=== PATIENT | female | born 1995 | race Caucasian/White ===

== ENCOUNTER 2019-07-09 09:25 | Outpatient (CLI) | payer OTHER, SELFPAY ==
[2019-07-09 09:45] VITALS: BP 129/82; PULSE 99
[2019-07-09 09:56] LABS: Basophils Percent Auto 0.2 % (0.2-1.2); Eosinophils Absolute Auto 0.1 K/mm3 (0-0.3); Eosinophils Percent Auto 0.7 % (0-4.4); Hematocrit 41.2 % (37.0-47.0); Hemoglobin 14.4 g/dL (12.0-15.0); Immature Granulocyte Absolute 0.03 K/mm3 (0.00-0.031); Immature Granulocyte Percent A 0.3 % (0-0.5); Lymphocytes Absolute Auto 1.39 K/mm3 (0.9-3.2); Lymphocytes Percent Auto 15.4 % (18.3-44.2); Mean Corpuscular Hemoglobin 31.9 pg (26-34); Mean Corpuscular Volume 91.2 fl (80-100); Mean Platelet Volume 10.2 fl (7.4-10.4); Monocytes Absolute Auto 0.6 K/mm3 (0.1-0.6); Monocytes Percent Auto 6.8 % (2.6-8.5); Neutrophils Absolute Auto 6.9 K/mm3 (1.3-6.7); Neutrophils Percent Auto 76.6 % (45.5-73.1); Platelet Count Result 207 k/mm3 (150-375); Red Blood Count 4.52 M/mm3 (4.2-5.4); Red Cell Distribution Width 12.8 % (11.5-14.5)
[2019-07-09 09:57] LABS: Add Urine Microscopic? NO; Appearance Urine Clear (Clear); Bilirubin Urine Negative (Negative); Blood Urine Negative (Negative); Color Urine Straw (Yellow); Glucose Urine UA Negative (Negative); Ketones Urine Negative (Negative); Leukocyte Esterase Ur Negative LEU/UL (NEGATIVE); Nitrate Urine Negative (Negative); Protein Urine Negative (Negative); Specific Grav Ur 1.005 (1.001-1.035); Urobilinogen Urine Negative mg/dL (<2.0)
[2019-07-09 10:00] VITALS: BP 120/81; PULSE 101
[2019-07-09 10:06] LABS: Creatinine Urine 32.2 mg/dL; Total Protein Urine Random 13 mg/dL
[2019-07-09 10:15] VITALS: BP 114/73; PULSE 85
[2019-07-09 10:28] LABS: Alanine Aminotransferase 13 U/L (4-35); Albumin Level 3.9 g/dL (3.5-5.1); Alkaline Phosphatase 189 U/L (38-126); Aspartate Amino Transferase 25 U/L (14-36); Bilirubin,Total 0.7 mg/dL (0.2-1.3); Blood Urea Nitrogen 6 mg/dL (7-17); Calcium 9.2 mg/dL (8.4-10.2); Carbon Dioxide 22 mmol/L (22-30); Chloride 107 mmol/L (98-107); Estimated Glomerular Filt Rate > 60; Glucose 77 mg/dL (65-105); Potassium 3.9 mmol/L (3.4-5.0); Sodium 135 mmol/L (137-145); Uric Acid 5.3 mg/dL (2.5-7.5)
[2019-07-09 10:30] VITALS: BP 109/76; PULSE 98
[2019-07-09 10:36] VITALS: BP 120/81; PULSE 103
--- NOTE | 2019-07-09 10:40 | PC.NURSE ---
1035- Spoke with Michele Berry regarding labs, NST and BP's. Orders to discharge to home and return for induction at 200 on 07/10/2019.
== END 2019-07-09 11:00 | disposition home or self-care (01) ==
LOC: ANHOBOP 09:32 → ANHOBPP 09:32
PROVIDERS: Family Provider Advanced Practice Midwife; PCP Internal Medicine; Visit Provider Advanced Practice Midwife
DX: O13.9 Gestational [pregnancy-induced] hypertension without significant proteinuria, unspecified trimester (principal)
CPT/HCPCS: 36415; 59025; 80053; 81003; 82570; 84156; 84550; 85025; 87086; 99199

== ENCOUNTER 2019-07-10 19:55 | Inpatient (IN) | payer OTHER, SELFPAY ==
[2019-07-10] VITALS (10 sets, daily range): BP systolic 101–130; BP diastolic 68–87; PULSE 80–146; TEMP 36.8; BMI 32.0
--- NOTE | 2019-07-10 20:05 | LDADM ---
This patient, Shaista Dowling, was admitted to Labor/Delivery/Recovery 105 on 07/10/19 at 19:55. Plans for labor, pain management and were discussed with patient. Patient/family oriented to hospital policies and general routines including ID bracelet, bed and alarms, visiting hours, pain management, procedures, bathroom and other care routines, personal items, smoking policy, room service/diet and guest tray routines, infant security routines, and visiting hours. Patient/Family are encouraged to report perceived risks to care and to ask questions if they do not understand what they are told or what they should do. See OBIX for further documentation.
[2019-07-10] MEDS: DINOPROSTONE 10 MG VAG INSERT VAGINAL (20:39)
[2019-07-10 21:09] LABS: Basophils Percent Auto 0.1 % (0.2-1.2); Eosinophils Absolute Auto 0.1 K/mm3 (0-0.3); Eosinophils Percent Auto 0.6 % (0-4.4); Hemoglobin 13.7 g/dL (12.0-15.0); Immature Granulocyte Absolute 0.03 K/mm3 (0.00-0.031); Immature Granulocyte Percent A 0.3 % (0-0.5); Lymphocytes Absolute Auto 1.92 K/mm3 (0.9-3.2); Mean Corpuscular HGB Conc 35.1 g/dl (32-36); Mean Corpuscular Hemoglobin 31.9 pg (26-34); Mean Corpuscular Volume 90.9 fl (80-100); Mean Platelet Volume 10.4 fl (7.4-10.4); Monocytes Absolute Auto 0.6 K/mm3 (0.1-0.6); Neutrophils Absolute Auto 7.5 K/mm3 (1.3-6.7); Platelet Count Result 227 k/mm3 (150-375); Red Blood Count 4.29 M/mm3 (4.2-5.4); White Blood Count 10.1 K/mm3 (4.5-10.0)
[2019-07-11] VITALS (129 sets, daily range): BP systolic 77–133; BP diastolic 52–98; PULSE 76–227; RESP 16; TEMP 36.6–37.1; O2SAT 98–100
[2019-07-11] MEDS: ZOLPIDEM TARTRATE 5 MG TABLET PO (00:45)
[2019-07-11] MEDS: LACTATED RINGERS 1,000 ML 125 ML IV CONT ×2 (02:31→06:30)
--- NOTE | 2019-07-11 05:16 | WPDANESEPP ---
Anes - Eval Pre Procedure Procedure: Labor epidural Date/Time: 07/11/19 05:16 Surgeon: jameel Preop Diagnosis: Abd pain with contractions Pre Op Diagnosis: Induction Patient Data Age: 24 Gender: F Height: 5 ft 6 in Weight: 90 kg Last Vital Signs Temp 98.4 F 07/11/19 00:00 Pulse 100 07/11/19 05:16 BP 109/78 07/11/19 05:16 Pulse Ox 100 07/11/19 05:14 Allergies Allergy/AdvReac Type Severity Reaction Status Date / Time No Known Allergies Allergy Verified 06/12/19 13:36 Home Medications Medication Instructions Recorded Confirmed Type PNV cmb#95-ferrous fumarate-FA 1 tablet PO DAILY 06/12/19 06/12/19 History [] valacyclovir [Valtrex] 500 mg PO Q12H 06/12/19 06/12/19 History Laboratory Tests 07/10/19 07/10/19 07/10/19 20:30 20:30 20:30 WBC 10.1 K/mm3 H K/mm3 (4.5-10.0) RBC 4.29 M/mm3 M/mm3 (4.2-5.4) Hgb 13.7 g/dL g/dL (12.0-15.0) Hct 39.0 % % (37.0-47.0) MCV 90.9 fl fl (80-100) MCH 31.9 pg pg (26-34) MCHC 35.1 g/dl g/dl (32-36) RDW 13.0 % % (11.5-14.5) Plt Count 227 k/mm3 k/mm3 (150-375) MPV 10.4 fl fl (7.4-10.4) Immature Gran % (Auto) 0.3 % % (0-0.5) Neut % (Auto) 74.0 % H % (45.5-73.1) Lymph % (Auto) 19.0 % % (18.3-44.2) [place] % (Auto) 6.0 % % (2.6-8.5) Eos % (Auto) 0.6 % % (0-4.4) Baso % (Auto) 0.1 % L % (0.2-1.2) Lymph # (Auto) 1.92 K/mm3 K/mm3 (0.9-3.2) [place] # (Auto) 0.6 K/mm3 K/mm3 (0.1-0.6) Eos # (Auto) 0.1 K/mm3 K/mm3 (0-0.3) Baso # (Auto) 0.0 K/mm3 K/mm3 (0.0-0.1) Abs Immat Gran (auto) 0.03 K/mm3 K/mm3 (0.00-0.031) Absolute Neuts (auto) 7.5 K/mm3 H K/mm3 (1.3-6.7) Absolute Nucleated RBC 0.0 K/mm3 K/mm3 (0.0-0.012) Nucleated RBC % 0.0 % % (0.0-0.2) RPR Pending Blood Type AB Positive Antibody Screen Negative Patient hx anesthesia problems: none Family hx anesthesia problems: none PMFSH Past Medical History Medical History Overweight (BMI 25.0-29.9) and not yet delivered Surgical History Surgical History (Updated 07/11/19 @ 05:18 by Eliazar Lee CRNA) [place] teeth extracted Family History Family History Other No pertinent family history Social History Social History Smoking status: Never smoker Substance use: never Gender identity (if verbalized by the patient): Female Spiritual care concerns: No Exam Day of Procedure 07/11/19 05:16 Patient weight: overweight Airway: Mallampati scale class II Neurological: alert and oriented
[2019-07-11 07:19] LABS: Rapid Plasma Reagin Non-Reactive (NonReactive)
--- NOTE | 2019-07-11 07:26 | WPDOBADMIT ---
Obstetrics - Admit Note Admission Note: record reviewed. No pertinent additions to the history and/or any subsequent changes in the physical findings that are not consistent with the expected course of the were found. MiL term , no complications SVE /-1 AROM clear fluid Additions to the history and/or subsequent changes in the physical findings follow. None.
[2019-07-11] MEDS: OXYTOCIN 30 UNITS/NS 500 ML 30 UNITS/500 ML BAG 999 UNITS IV CONT (11:39)
--- NOTE | 2019-07-11 12:00 | PM.OBPRVD ---
OB - Delivery Note Procedure Delivery date: 07/11/19 Procedure: vaginal delivery Intrapartal events: None Induction method: AROM and per misoprostol protocol Delivery monitor: external FHT and external uterine Route of delivery: Laceration description: Perineal - 2nd Degree Delivery repair: vicryl Specimen: No Anesthesia type: Epidural Disposition: no change () Narrative: baby came out vigorous, still some mild oozing from tissue after repair, vaginal packingplaced Baby Date of : 07/11/19 Time of : 11:36 Weeks of gestation at delivery: 40 Infant gender: Female Weight (pounds): 7 Weight (ounces): 6 presentation: vertex position: Right Occiput Anterior Placenta delivery description: Spontaneous cord vessel description: 3 Vessels and Clamped/Cut score one minute: 8 score five minutes: 9
[2019-07-11] MEDS: OXYTOCIN 30 UNITS/NS 500 ML 30 UNITS/500 ML BAG 125 UNITS IV CONT (12:12)
--- NOTE | 2019-07-11 15:55 | PC.NURSE ---
This patient, Shaista Dowling, was received from Labor & Deliver on 07/11/19 at 1554. Personal belongings list checked and signed. Patient/family oriented to unit policies and routines
[2019-07-11] MEDS: IBUPROFEN 600 MG TABLET PO ×2 (16:28→23:05)
[2019-07-11] MEDS: VALACYCLOVIR HCL 500 MG TABLET PO (17:46)
[2019-07-11] MEDS: ACETAMINOPHEN 325 MG TABLET 650 MG PO (18:04)
[2019-07-12 05:37] LABS: Hematocrit 29.2 % (37.0-47.0); Hemoglobin 10.2 g/dL (12.0-15.0)
[2019-07-12] MEDS: IBUPROFEN 600 MG TABLET PO ×3 (06:46→21:55)
[2019-07-12 06:50] VITALS: BP 114/74; PULSE 95; RESP 18; TEMP 36
[2019-07-12] MEDS: VALACYCLOVIR HCL 500 MG TABLET PO ×2 (08:56→21:55)
--- NOTE | 2019-07-12 10:01 | PM.OBPNVD ---
OB - PN: Subj Subjective Date/time seen: 07/12/19 10:01 OB - PN: Obj Data Labs CBC & Chem 7: 07/12/19 04:36 Labs: Laboratory Results - last 24 hr 07/12/19 04:36 Hgb 10.2 L D Hct 29.2 L OB - PN A/P Plan day: 1 Plan: routine care Comments: Pt considering discharge today. Time Spent With Patient Time: Total time spent is greater than 50% in coordination of care (as documented) at patient's floor/unit and/or counseling patient: Review of Systems Review of Systems: All systems reviewed & are unremarkable except as noted in HPI and below Exam Narrative: Exam Narrative: Fundus firm and vaginal flow controlled. Const: General: comfortable Cardio: Rate: regular rate Psych: Appearance: grossly normal Affect: normal affect Attitude: cooperative Judgement: Good judgement present (Psych)
--- NOTE | 2019-07-12 17:36 | WPDANLDPN2 ---
Anes-Prog Note L&D Date/Time: 07/12/19 17:36 Comfortable throughout: labor and delivery Neuraxial method: epidural Epidural/Spinal procedure site: clean & non-tender Neuro status: Neuro function grossly intact. Cardiovascular status: normal Respiratory status: normal Airway patency: baseline Mental status: baseline Post-Op hydration status: normal Vital Signs: Last Vital Signs Temp 36.0 C L 07/12/19 06:50 Pulse 95 07/12/19 06:50 Resp 18 07/12/19 06:50 BP 114/74 07/12/19 06:50 Pulse Ox 100 07/11/19 20:15 Post-procedural complaints: none Patient feedback: Patient satisfied with anesthetic care.
[2019-07-12 20:00] VITALS: BP 114/77; PULSE 98; RESP 13; TEMP 37.2; O2SAT 99
[2019-07-13] MEDS: IBUPROFEN 600 MG TABLET PO (08:42)
[2019-07-13] MEDS: VALACYCLOVIR HCL 500 MG TABLET PO (08:54)
--- NOTE | 2019-07-13 09:08 | PM.OBDSVD ---
DS: Diagnosis Discharge Diagnosis (1) Vaginal delivery: Code(s): O80 - Encounter for full-term uncomplicated delivery Status: Acute OB - DS: Summary OB Procedures : None OB Procedures Intrapartum: Spontaneous Vag Delivery OB Procedures: : None Peripartum Data Delivery Method: Natural Vaginal complications: none Status at Discharge Functional status at discharge: independent ambulation Overall status at discharge: patient is back to baseline Time Spent with Patient Time attestation: Total time spent providing and/or coordinating discharge services: Time spent: Less than 30 minutes Exam Narrative: Exam Narrative: Fundus firm and vaginal flow controlled. Const: General: comfortable Cardio: Rate: regular rate Psych: Appearance: grossly normal Mental Status: mental status grossly normal Affect: normal affect Attitude: cooperative Thought content: Yes Normal thought content present Judgement: Good judgement present (Psych) Discharge Plan Discharge Attending physician on discharge: Melba Berry Discharging Clinician: Hilary Hutchinson Patient Disposition: Home, Self-Care Activity: pelvic rest Diet: as tolerated Patient Instructions: Antibiotic Form Stand Alone Forms: General Discharge Information Follow-up/Referrals: Melba Berry CNM [Certified Nurse Cryptographic Machine Operator] - Discharge Medications: Continued valacyclovir [Valtrex] 500 mg Tablet 500 mg PO Q12H RF: 0 PNV cmb#95-ferrous fumarate-FA [] 28 mg iron- 800 mcg Tablet 1 tablet PO DAILY RF: 0 Date of admission: 07/10/19 19:55 Primary Care Provider: Benigno,Ladarius Admitting Provider: Zulema Cook Attending physician on admission: Zulema Cook
[2019-07-13 09:42] VITALS: BP 113/74; PULSE 98; RESP 18; TEMP 35.9
[2019-07-16 09:59] VITALS: BP 124/85; PULSE 93; RESP 20; TEMP 37.2; O2SAT 100
== END 2019-07-13 13:32 | disposition home or self-care (01) | DRG 807 ==
LOC: ANHLDR 07-11 13:11 → ANHOB2 07-11 16:37
PROVIDERS: Advanced Practice Midwife; Admitting Provider Obstetrics & Gynecology; PCP Internal Medicine; Visit Provider Obstetrics & Gynecology
DX: O76 Abnormality in fetal heart rate and rhythm complicating labor and delivery (principal); Z37.0 Single live birth; O70.1 Second degree perineal laceration during delivery; Z3A.40 40 weeks gestation of pregnancy
CPT/HCPCS: 36415; 85014; 85018; 85025; 86592; 86850; 86900; 86901; A9270; J2590; J2795; J3010; J7120

== ENCOUNTER 2021-07-18 15:01 | Inpatient (IN) | payer OTHER, SELFPAY ==
--- OUTSIDE RECORDS SUMMARY | 2021-07-18 15:16 | XMS_ITS ---
:1995 Author Organization [facility] Address [address] [place] [address] Phone Care Team Providers Name Role Phone CONCEPCION JACKSON Unavailable Unavailable Plan of Treatment Findings Encounter Date Go to the emergency room if condition WALK-IN CLINIC SICK SIT with 04/15/2019 worsens SANDER STALLINGS CAN LINE EXAMINER-BC Medication instruction WALK-IN CLINIC SICK VISIT with 2019 SANDER STALLINGS CAN LINE EXAMINER-BC Ordered follow-up visit as needed WALK-IN CLINIC SICK VISIT with 04/15/2019 with an office visit. SANDER STALLINGS CAN LINE EXAMINER-BC Ordered goals, options, limitations WALK-IN CLINIC SICK VISI T with 04/15/2019 and risks of therapy SANDER STALLINGS CAN LINE EXAMINER-BC Ordered patient will call for WALK-IN CLINIC SICK VISIT with 04/15/2019 appointment as needed SANDER STALLINGS CAN LINE EXAMINER-BC Ordered return to the clinic if WALK-IN CLINIC SICK VISIT wi th 04/15/2019 condition worsens or new symptoms SANDER STALLINGS CAN LINE EXAMINER-BC arise Ordered follow-up visit in 1-2 weeks WALK-IN CLINIC SICK SIT with 01/13/2018 with an office visit or sooner if SANDER STALLINGS CAN LINE EXAMINER-BC symptoms persist or worsen Ordered patient to call if problem WALK-IN CLINIC SICK VISIT with 01/13/2018 develops SANDER STALLINGS CAN LINE EXAMINER-BC Ordered referred to primary care WALK-IN CLINIC SICK VISIT w ith 01/13/2018 physician SANDER STALLINGS CAN LINE EXAMINER-BC Ordered return to the clinic if WALK-IN CLINIC SICK VISIT wi th 01/13/2018 condition worsens or new symptoms SANDER DAVIES
--- OUTSIDE RECORDS SUMMARY | 2021-07-18 15:16 | XMS_ITS | Clinical Summary ---
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 No restrictions id entified. Copy of physical made for chart. Assessments Includes: Assessments from this encounter - Visit for: pre-employment physical [Z0 2.1 - Encounter for pre-employment examination] - Routine adult history and physical (18 - 64 yrs) [Z00.00 - Encounter for general adult medical examination without abnormal findings] Medical Equipment - Implanted Devices Includes: Current DevicesNo Medical Equipment Recorded Medications Includes: Medications discussed during this encounter and other current Medications Current Medications (continue as prescribed) PredniSONE 20MG Oral Tablet 01/13/2018 Provider: KARLA HAROBC Diagnosis: Acute bronchitis, un specified One tablet twice a day ProAir HFA 108 (90 Base)MCG/ACT 01/13/2018 Provider: SANDER BRAR-BC Inhalation Aerosol, solution Diagnosis: Acute bronchitis, un specified use as directed 2 puffs every 4-6 hours as needed
--- OUTSIDE RECORDS SUMMARY | 2021-07-18 15:16 | XMS_ITS | Clinical Summary ---
:1995 Author Organization [facility] Address [address] [place] [address] Phone Care Team Providers Name Role Phone CONCEPCION AJCKSON Unavailable Unavailable Reason for Visit and Chief Complaint The Chief Complaint is: THE PATIENT HAS A COUGH, IT HAS BEEN GOING ON FOR 2 WEEKS Plan of Treatment - Return to the clinic if condition worsens or new symptoms arise - Referred to primary care physician - Follow-up visit in 1-2 weeks with an o ffice visit or sooner if symptoms persist or worsen - Transition in care, clinical summary p rovided - Patient to call if problem develops Assessments Includes: Assessments from this encounterNo Assessments Recorded Instructions Includes: Instructions from this encounter Instructions to patient Go to the emergency room if condition wo rsens Watch for signs/symptoms of infection Watch for signs/symptoms of infection, r eturn to the clinic if seen Education and Decision Aids were provide d during visit for: Patient education about antibiotics: nee d to finish even if feeling better Medical Equipment - Implanted Devices Includes: Current DevicesNo Medical Equipment Recorded Medications Includes: Medications discussed during this encounter and other current Medications New / Renewed during this visit SANDER DOLAN on 01/13/2018 PredniSONE 20MG Oral Tablet Provider: KARLA DOLAN 5 day supply: 10
--- OUTSIDE RECORDS SUMMARY | 2021-07-18 15:16 | XMS_ITS | Clinical Summary ---
:1995 Author Organization [facility] Address [address] [place] [address] Phone Care Team Providers Name Role Phone CONCEPCION JACKSON Unavailable Unavailable Reason for Visit and Chief Complaint The Chief Complaint is: PT STATES THAT SHE HAS A LUMP IN HER RIGHT EAR TEO. SHE STATES THAT IT IS PAINFUL TO TOUCH AND STATES THAT SHE IS UNSURE WHEN IT APPEARED BUT WAS MESSING WITH IT YESTERDAY AND IT IS SORE NOW Plan of Treatment No Plan of Treatment Recorded Assessments Includes: Assessments from this encounterNo Assessments Recorded Medical Equipment - Implanted Devices Includes: Current DevicesNo Medical Equipment Recorded Medications Includes: Medications discussed during this encounter and other current Medications Current Medications (continue as prescribed) PredniSONE 20MG Oral Tablet 01/13/2018 Provider: KARLA DOLAN Diagnosis: Acute bronchitis, un specified One tablet twice a day ProAir HFA 108 (90 Base)MCG/ACT 01/13/2018 Provider: SANDER DOLAN Inhalation Aerosol, solution Diagnosis: Acute bronchitis, un specified use as directed 2 puffs every 4-6 hours as needed Zithromax Z-Ray 250MG Oral Tablet 01/13/2018 Provider: SANDER BRAR-MACHELLE Diagnosis: Acute bronchitis, un specified as directed
--- OUTSIDE RECORDS SUMMARY | 2021-07-18 15:16 | XMS_ITS | Clinical Summary ---
:1995 Author Organization [facility] Address [address] [place] [address] Phone Care Team Providers Name Role Phone CONCEPCION JACKSON Unavailable Unavailable Reason for Visit and Chief Complaint CHART UPDATE Plan of Treatment No Plan of Treatment [...] Z-Ray 250MG Oral Tablet 01/13/2018 Provider: SANDER DOLAN Diagnosis: Acute bronchitis, un specified as directed Medications Administered Includes: Administered Medications from this encounterNo Administered Medications Recorded Results Includes: Results discussed during this encounterKelley Abdalla
--- OUTSIDE RECORDS SUMMARY | 2021-07-18 15:16 | XMS_ITS | Clinical Summary ---
:1995 Author Organization [facility] Address [address] [place] [address] Phone Care Team Providers Name Role Phone CONCEPCION JACKSON Unavailable Unavailable Reason for Visit and Chief Complaint The Chief Complaint is: SORE THROAT Plan of Treatment - Goals, options, limitations and risks of therapy - Return to the clinic if condition wors ens or new symptoms arise - Go to the emergency room if condition worsens - Medication instruction - Follow-up visit as needed with an offi ce visit. - Patient will call for appointment as n eeded Assessments Includes: Assessments from this encounter - Acute upper respiratory infection Instructions Includes: Instructions from this encounter Instructions to patient Instructions for patient Go to the emergency room if condition wo rsens Education and Decision Aids were provide d during visit for: Patient education about antibiotics: nee d to finish even if feeling better Medical Equipment - Implanted Devices Includes: Current DevicesNo Medical Equipment Recorded Medications Includes: Medications discussed during this encounter and other current Medications Current Medications (continue as prescribed) PredniSONE 20MG Oral Tablet 01/13/2018 Provider: KARLA STALLINGS GAS OPERATIONS ANALYST- Diagnosis: Acute bronchitis, un specified
--- OUTSIDE RECORDS SUMMARY | 2021-07-18 15:16 | XMS_ITS ---
Care Plan - [facility] Created on:July 18, 2021 Patient:JOSELIN CAMPA Sex:Female :1995 Author Organization [facility] Address [address] [place] [address] Phone Care Team Providers Name Role Phone CONCEPCION JACKSON Unavailable Unavailable
--- OUTSIDE RECORDS SUMMARY | 2021-07-18 15:17 | XMS_ITS | Encounter Summary ---
:1995 Author Care Team Providers Name Role Phone Ladarius Pelaez MD Primary Care Provider [phone] Reason for Visit OB visit OB [id number] EDC 08/29/2021 LMP 11/22/2020 Assessment and Plan Assessment Note Patient is _31__weeks . Dis cussed plan. 1. Routine care Discussion Note: None recorded.Patient educational handouts: No information available. Plan of Care Reminders Provider Appointments U/s Ob Ultrasou nd, TECH Growth 07/26/2021 3:30PM ? Ob Routine Radha Th erese 07/26/2021 MD Yung 4:15PM ? Ob Routine Melba Berry, 08/05/2021 CNM 11:45AM ? Ob Routine Melba Berry, 08/12/2021 CNM 9:30AM ? Ob Routine Melba Berry, 08/17/2021 CNM 8:30AM Lab None ? ? recorded. Referral None ? ? recorded. Procedures None ? ? recorded. Surgeries None ? ? recorded. Imaging None ? ? recorded. Medications Name Start Date ? ?
--- OUTSIDE RECORDS SUMMARY | 2021-07-18 15:17 | XMS_ITS ---
:1995 Author Care Team Providers Name Role Phone Farhan Lianne Primary Care Provider Unavailable Allergies Code Code System Name Reaction Severity Status Onset NKDA ? Medications Name Status Start Date Stop Date ? ? acyclovir 400 mg tablet Active ? Not avai lable TAKE 1 TABLET BY MOUTH TWICE DAILY FOR SEVEN DAYS acyclovir 5 % topical ointment Active ? N ot available Apply twice a day to lips for prevention; 5 times daily for act ual sore amoxicillin 875 mg-potassium clavulanate Unknown ? Not available 125 mg tablet Aplisol 5 tub. unit/0.1 mL intradermal Active ? Not available injection solution hydrocodone 5 mg-acetaminophen 325 mg Unknown ? Not available tablet ofloxacin 0.3 % eye drops Active ? Not av ailable penicillin V potassium 250 mg tablet Unknown ? Not available valacyclovir 1 gram tablet Unknown ? Not a vailable Problems Name Status Onset Date Source ? Herpes Simplex Active ? Encounter Procedures None recorded. Results Lab Results Date Name Specimen Result Interpretation Description Value Range Status Address ? 08/20/2013 Drug ? Chain of Custody no ? Fi nal [facility] Screen, Diagnosti cs - Urine [place]: [address] ? ?
--- OUTSIDE RECORDS SUMMARY | 2021-07-18 15:17 | XMS_ITS | Encounter Summary ---
:1995 Author Care Team Providers Name Role Phone Ladarius Pelaez MD Primary Care Provider [phone] Reason for Visit None recorded. Assessment and Plan 1. screening ? US, obstetric, follow-up Discussion Note: None recorded.Patient educational handouts: No [...] recorded. Surgeries None ? ? recorded. Imaging [facility], Follow-up 05/04/2021 Medications Name Start Date ? ? acyclovir 400 mg tablet ?
--- OUTSIDE RECORDS SUMMARY | 2021-07-18 15:17 | XMS_ITS | Encounter Summary ---
:1995 Author Care Team Providers Name Role Phone Ladarius Pelaez MD Primary Care Provider [phone] Reason for Visit OB visit OB [id number] EDC 08/29/2021 LMP 11/22/2020 Assessment and Plan 1. Routine care Discussion Note: None recorded.Patient [...] recorded. Medications Name Start Date ? ? acyclovir 400 mg tablet ? aspirin ?
--- OUTSIDE RECORDS SUMMARY | 2021-07-18 15:17 | XMS_ITS ---
:1995 Author Care Team Providers Name Role Phone ANNA ZARCO MD Primary Care Provider [phone] Allergies Code Code System Name Reaction Severity Status Onset NKDA ? Medications Name Status Start Date Stop Date ? ? acyclovir 400 mg tablet Active ? Not avai lable aspirin Active ? Not available multivitamin tablet Completed ? 01/20/2021 Active ? Not available Prilosec Completed ? 08/08/2019 valacyclovir 1 gram tablet Completed ? 06/22 valacyclovir 500 mg tablet Completed ? 01/20 TAKE 1 TABLET BY MOUTH EVERY DAY valacyclovir hydrochloride 500 mg tabs Completed ? 08/08/2019 Problems Name Status Onset Date Source ? SNOMED CT Concept Unknown 05/09/[address] Concept Unknown 05/09/2018 History Blighted Ovum Unknown 11/22/2018 History Finding of Contents of Cervix Unknown 11/22/2018 Hi story Threatened Miscarriage Unknown 12/11/2018 History Gestation Less than 9 Weeks Unknown 12/11/2018 Hist ory Detection Examination Unknown 12/11/2018 History Screening Unknown 12/23/2018 History , Childbirth and Puerperium Unknown 01/23/2019 History Finding Screening for Malformation Unknown 02/19/2019 History , Childbirth and Puerperium Unknown 05/02/2019 History Finding Normal in Multigravida Unknown 06/09/2019 History Unknown 06/23/2019 ?
--- OUTSIDE RECORDS SUMMARY | 2021-07-18 15:17 | XMS_ITS | Encounter Summary ---
:1995 Author Care Team Providers Name Role Phone Ladarius Pelaez MD Primary Care Provider [phone] Reason for Visit OB visit ob [id number] edc 08/29/2021 lmp 11/22/2020 Assessment and Plan Assessment Note Patient is _33__weeks . Dis cussed plan. 1. Routine care [...]
--- OUTSIDE RECORDS SUMMARY | 2021-07-18 15:17 | XMS_ITS | Encounter Summary ---
:1995 Author Care Team Providers Name Role Phone Ladarius Pelaez MD Primary Care Provider [phone] Reason for Visit OB visit OB [id number] EDC 08/29/2021 LMP 11/22/2020 Assessment and Plan Assessment Note Patient is _23__weeks . Dis cussed plan. 1. Routine care [...]
[2021-07-18 16:00] VITALS: TEMP 36.3
[2021-07-18] MEDS: AMPICILLIN 2 GM/NS 100 ML 2 GM/100 ML BAG IVPB (16:13)
[2021-07-18] MEDS: BETAMETHASONE SOD PHOS/ACETATE 30 MG/5 ML VIAL 12 MG IM (16:15)
[2021-07-18 16:20] VITALS: BMI 33.0
[2021-07-18 16:22] VITALS: BP 122/73; PULSE 108
--- NOTE | 2021-07-18 17:27 | PM.IMHP ---
H&P: HPI History of Present Illness Date/Time: 07/18/21 17:27 Chief Complaint: pprom Narrative: Shaista is a 26yo at 34.0 who presented with ROM this afternoon. Mild irregular contractions but not laboring. Has received one dose of celestone. has only been complicated by COVID infection in March and short interval . She has had growth US and taking ASA. Review of Systems Review of Systems: All systems reviewed & are unremarkable except as noted in HPI and below PMFSH Past Medical History Medical History (Updated 07/18/21 @ 17:36 by Radha Barragan MD) Overweight (BMI 25.0-29.9) and not yet delivered Surgical History Surgical History (Updated 07/11/19 @ 05:18 by Eliazar Lee CRNA) [place] teeth extracted Family History Family History Other No pertinent family history Social History Social History Smoking status: Never smoker Substance use: never Gender identity (if verbalized by the patient): Female Spiritual care concerns: No Meds Home Medications and Allergies Home Medications Medication Instructions Recorded Confirmed Type PNV cmb#95-ferrous fumarate-FA 1 tablet PO DAILY 06/12/19 07/18/21 History [] valacyclovir [Valtrex] 500 mg PO Q12H 06/12/19 06/12/19 History aspirin 81 mg PO DAILY 07/18/21 07/18/21 History Allergies Allergy/AdvReac Type Severity Reaction Status Date / Time No Known Allergies Allergy Verified 06/12/19 13:36 Vital Signs Vital Signs - 24 hr 07/18/21 16:22 Pulse Rate 108 H Blood Pressure 122/73 Exam Const: General: no acute distress Resp: Effort & Inspection: normal respiratory effort Auscultation: clear to auscultation bilaterally Cardio: Rate: regular rate Rhythm: regular rhythm GI: GI Palp: Yes Soft to palpation Extrem: General: normal to inspection Assessment and Plan Assessment and plan (1) premature rupture of membranes (PPROM) with onset of labor after 24 hours of rupture in third trimester, antepartum: Code(s): O42.113 - premature rupture of membranes, onset of labor more than 24 hours following rupture, third trimester Status: Acute Assessment and Plan: ampicillin running s/p first dose celvaleryone discussed RBA of delivery here vs transfer to [place]. They strongly desire transfer to ensure they are not from the baby. [facility] Access center called, transfer accepted.
[2021-07-18 17:45] VITALS: TEMP 36.1
[2021-07-18 18:27] VITALS: BP 126/79; PULSE 103
--- NOTE | 2021-08-09 07:23 | PM.TDS ---
Transfer Discharge Sum: Prov Provider Date of admission: 07/18/21 15:01 Primary care physician: Ladarius Pelaez, Admitting clinician: Radha Barragan MD Consults: 07/18/21 15:40 Consult to Anesthesiology Routine Reason for consultation: Epidural Has provider been notified: Yes DS: Admitting Diagnosis Discharge Date 07/18/21 Admitting Diagnosis PPROM DS: Discharge Diagnosis Discharge Diagnosis (1) premature rupture of membranes (PPROM) with onset of labor after 24 hours of rupture in third trimester, antepartum: Code(s): O42.113 - premature rupture of membranes, onset of labor more than 24 hours following rupture, third trimester Status: Acute Plan Narrative: Shaista is a 26yo at 34.0 who presented with ROM this afternoon.? Mild irregular contractions but not laboring.? Has received one dose of celestone.? has only been complicated by COVID infection in March and short interval .? She has had growth US and taking ASA.? Received celestone. Transfer per her preference due to 34 week gestation and desire to not be from . Transfer Discharge Sum: Med Medications Active and Home Medications: Home Medications vit no.95-ferrous fumarate 28 mg-folic acid 800 mcg tablet () 1 tablet PO DAILY 06/12/19 [History Confirmed 07/18/21] valacyclovir 500 mg tablet (Valtrex) 500 mg PO Q12H 06/12/19 [History Confirmed 06/12/19] aspirin 81 mg tablet 81 mg PO DAILY 07/18/21 [History Confirmed 07/18/21] Transfer Discharge Sum: Hosp Hospital Course Hospital course: Shaista Dowling is a 26 year old female admitted with PPROM. She requested transfer so as to not be from her . Time Spent with Patient Time attestation: Total time spent providing and/or coordinating transfer services: 45 min Exam Const: General: no acute distress Resp: Effort & Inspection: normal respiratory effort Auscultation: clear to auscultation bilaterally Cardio: Rate: regular rate Rhythm: regular rhythm GI: GI Palp: Yes Soft to palpation Extrem: General: normal to inspection
== END 2021-07-18 18:30 | disposition short-term general hospital (02) | DRG 833 ==
PROVIDERS: Admitting Provider Obstetrics & Gynecology; PCP Internal Medicine; Visit Provider Obstetrics & Gynecology
DX: O42.913 Preterm premature rupture of membranes, unspecified as to length of time between rupture and onset of labor, third trimester (principal); Z3A.34 34 weeks gestation of pregnancy
CPT/HCPCS: J0290; J0702

== ENCOUNTER 2022-10-26 01:04 | Day surgery (SDC) | payer OTHER, SELFPAY ==
[2022-10-23 10:45] VITALS: BMI 30.7
--- NOTE | 2022-10-23 10:54 | PC.NURSE ---
Report to the Outpatient Waiting Room, entrance under the green pavilion located off [facility], at time _1200 on date ___10/24/22____. Planned Procedure Time: __2PM . Time changes happen often and if your time is changed the preop area will call you the afternoon before. - You and your visitor will be asked to self-screen and do not enter if you have any COVID symptoms. - A mask is optional within the hospital at this time. Patients may have clear liquids (water, carbonated beverages, clear teas, apple juice) until 3 hours prior to surgery (1100 AM) with a maximum of 20 ounces. - No food from midnight until time of surgery - Infants may have breast milk until 4 hours before surgery, infant formula 6 hours prior to surgery. - Children will be allowed to drink immediately following surgery. If applicable, please bring a bottle or sippy cup to assist with drinking. Juice, water, soda, and popsicles are readily available. For infants on formula, please bring formula the day of surgery. Pacifiers are allowed. Take the following medications with a SIP of water the morning of surgery: N/A DO NOT STOP ANY OF YOUR OTHER PRESCRIPTION MEDICATIONS PRIOR TO SURGERY ?EXCEPT THE FOLLOWING Medications to discontinue per physician N/A Date to take last dose Please no make-up, nail greenlandic, hairspray, perfume, deodorant, or body powder the day of surgery. No jewelry (including any body piercings) or valuables the day of surgery, leave them at home. Please take a shower or bath the night before, or the morning of, surgery with an antibacterial soap. Wear comfortable, loose fitting clothing. Children are encouraged to wear pajamas. - Jewelry must be removed prior to entering the operating room. Rings and piercings that are not removed may be cut off. - The hospital will not accept responsibility for valuables. - Please leave all valuables, including medications, at home the day of surgery. If you are going home after surgery, a licensed motorcycle delivery driver must drive you home. - NO public transportation without another adult if you receive anesthesia. - We recommend that an adult stay with you for 24 hours following discharge. - We also recommend that you do not drive, make important decision, drink alcoholic beverages, or take any drugs that were not prescribed by your health care provider for at least 24 hours after your discharge time. For Pediatric surgeries, we recommend two adults accompany the child home. Follow any additional instructions given to you from your surgeon. If you or anyone in your household have experienced Covid symptoms in the past week, please notify your surgeon or the nurse liaison at the phone number below for possible testing. Telephone instructions given to ____PATIENT and asked if any additional questions and then verbalized understanding. Patient advised to call surgeon office or pre surgery nurse liaison [phone] if any additional questions.
--- NOTE | 2022-10-24 12:32 | SUR.PREOP ---
Report to the Outpatient Waiting Room, entrance under the green pavilion located off [facility], at time _0600 on date _10/26/22 . Planned Procedure Time: _07 . Time changes happen often and if your time is changed the preop area will call you the afternoon before. - You and your visitor will be asked to self-screen and do not enter if you have any COVID symptoms. - A mask is optional within the hospital at this time. Patients may have clear liquids (water, carbonated beverages, clear teas, apple juice) until 3 hours prior to surgery with a maximum of 20 ounces. - No food from midnight until time of surgery - Infants may have breast milk until 4 hours before surgery, infant formula 6 hours prior to surgery. - Children will be allowed to drink immediately following surgery. If applicable, please bring a bottle or sippy cup to assist with drinking. Juice, water, soda, and popsicles are readily available. For infants on formula, please bring formula the day of surgery. Pacifiers are allowed. Take the following medications with a SIP of water the morning of surgery: ___n/a DO NOT STOP ANY OF YOUR OTHER PRESCRIPTION MEDICATIONS PRIOR TO SURGERY ?EXCEPT THE FOLLOWING Medications to discontinue per physician n/a Date to take last dose___n/a Please no make-up, nail estonian, hairspray, perfume, deodorant, or body powder the day of surgery. No jewelry (including any body piercings) or valuables the day of surgery, leave them at home. Please take a shower or bath the night before, or the morning of, surgery with an antibacterial soap. Wear comfortable, loose fitting clothing. Children are encouraged to wear pajamas. - Jewelry must be removed prior to entering the operating room. Rings and piercings that are not removed may be cut off. - The hospital will not accept responsibility for valuables. - Please leave all valuables, including medications, at home the day of surgery. If you are going home after surgery, a licensed haul truck driver must drive you home. - NO public transportation without another adult if you receive anesthesia. - We recommend that an adult stay with you for 24 hours following discharge. - We also recommend that you do not drive, make important decision, drink alcoholic beverages, or take any drugs that were not prescribed by your health care provider for at least 24 hours after your discharge time. For Pediatric surgeries, we recommend two adults accompany the child home. Follow any additional instructions given to you from your surgeon. If you or anyone in your household have experienced Covid symptoms in the past week, please notify your surgeon or the nurse liaison at the phone number below for possible testing. Telephone instructions given to dwayne cosby and asked if any additional questions and then verbalized understanding. Patient advised to call surgeon office or pre surgery nurse liaison [phone] if any additional questions.
[2022-10-26 06:27] VITALS: BP 115/75; PULSE 81; RESP 16; TEMP 36.3; O2SAT 100
[2022-10-26] MEDS: ACETAMINOPHEN 500 MG TABLET 1000 MG PO (06:40)
--- NOTE | 2022-10-26 06:44 | WPDANESEPPF ---
Anes - Initial Pre Proc Eval Procedure: Operation Date: 10/26/22 07:30 Proposed Procedures p Suction Dilation and Curettage - Susanne Benson MD Date/Time: 10/26/22 06:44 Surgeon: Susanne Benson MD Pre Op Diagnosis: Missed AB Patient Data Age: 27 Gender: F Height: 1.68 m Weight: 86.36 kg Last Vital Signs Temp 36.3 C L 10/26/22 06:27 Pulse 81 10/26/22 06:27 Resp 16 10/26/22 06:27 BP 115/75 10/26/22 06:27 Pulse Ox 100 10/26/22 06:27 O2 Del Method Room Air 10/26/22 06:27 Allergies Allergy/AdvReac Type Severity Reaction Status Date / Time No Known Allergies Allergy Verified 10/26/22 06:19 Home Medications Medication Instructions Recorded Confirmed Type No Home Medications 10/23/22 10/26/22 History Patient hx anesthesia problems: none Family hx anesthesia problems: none Results Review: All pre-operative results and documents have been reviewed as part of the pre-operative evaluation. [facility] Past Medical History Medical History Overweight (BMI 25.0-29.9) and not yet delivered Surgical History Surgical History [place] teeth extracted Family History Family History Other No pertinent family history Social History Social History Smoking status: Never smoker Second hand tobacco smoke exposure: No Alcohol use details: SOCIAL - NONE SINCE AUGUST 2022 Substance use: never Substance use type: does not use Living arrangements: with family Gender identity (if verbalized by the patient): Female Spiritual care concerns: No Anes - Eval Final PreProcedure Day of Procedure 10/26/22 06:44 Patient weight: overweight Heart: regular rate and rhythm Lungs: clear to auscultation Airway: Mallampati scale class II Neurological: alert and oriented Last oral intake: >/= 8 hours ASA classification: II Emergent: no Anesthetic plan: proceed Anesthesia type and monitoring: general GIVS and standard monitoring Results Review: All pre-operative results and documents have been reviewed as part of the pre-operative evaluation. Informed Consent: The patient's anesthetic plan and its attendant risks and benefits were discussed with the patient/family/POA. Questions were solicited and answers provided to the satisfaction of the patient/family/POA.
[2022-10-26] MEDS: LACTATED RINGERS 1,000 ML 30 ML IV CONT (07:12)
--- NOTE | 2022-10-26 07:43 | WPDHPUPDATE1 ---
History and Physical Update Update Date/Time: 10/26/22 07:43 History and Physical has been reviewed, including an updated exam of the patient. There are NO changes in the patient's condition. Risks, benefits, and alternatives have been discussed and questions answered. Patient agrees to proceed with procedure.
--- NOTE | 2022-10-26 07:48 | PM.IMHP ---
H&P: HPI History of Present Illness Date/Time: 10/26/22 07:48 Chief Complaint: Missed miscarriage Narrative: 27-year-old female presents for surgical care. She has a missed miscarriage. We have agreed to perform suction D&C. She understands there is risk. She understands the procedure. She understands that injuries may occur to the procedure that result in hospitalization, more surgery, severe illness. She understands the risk of infection and hemorrhage. Denies any nausea, vomiting, fever, chills. She denies any chest pain shortness of breath. Review of Systems Review of Systems: All systems reviewed & are unremarkable except as noted in HPI and below Constitutional: Constitutional: Denies chills, Denies fatigue, Denies fever(s) and Denies weakness Eyes: Eyes: Denies blurry vision, Denies change in vision, Denies loss of peripheral vision, Denies loss of vision, Denies other visual disturbances and Denies eye pain ENT: Denies vertigo, Denies dizziness, Denies hearing loss, Denies mouth pain, Denies nasal obstruction, Denies neck mass and Denies neck pain Cardiovascular: Cardiovascular: Denies chest pain, Denies diaphoresis, Denies syncope, Denies leg edema and Denies dyspnea Respiratory: Respiratory: Denies chest congestion, Denies cough, Denies hemoptysis, Denies dyspnea and Denies wheezing Gastrointestinal: Gastrointestinal: Denies abdominal pain, Denies constipation, Denies diarrhea, Denies nausea and Denies vomiting Genitourinary: Genitourinary: Denies hematuria, Denies change in libido, Denies nocturia, Denies genital lesions, Denies flank pain and Denies urinary urgency Musculoskeletal: Musculoskeletal: Denies abnormal gait, Denies back pain, Denies myalgias, Denies arthralgias, Denies joint swelling, Denies muscle weakness and Denies neck pain Integumentary/Breasts: Skin/Breast: Denies swelling, Denies breast pain, Denies breast mass, Denies dry skin, Denies nipple discharge, Denies unusual bruising and Denies jaundice Neurologic: Denies Neuro-related abnormal movements, Denies Abnormal speech present, Denies abnormal gait, Denies behavioral changes, Denies confusion, Denies vertigo, Denies dizziness, Denies syncope, Denies loss of vision, Denies memory loss, Denies convulsions and Denies weakness Psychiatric: Psychiatric: Denies abnormal sleep pattern, Denies behavioral changes, Denies change in libido, Denies confusion, Denies depression, Denies anhedonia and Denies memory loss Endocrine: Endocrine: Reports no additional endocrine complaints, Denies change in libido and Denies fatigue Hematologic/Lymphatic: Hematologic/Lymphatic: Reports no additional hematologic/lymphatic complaints Allergic/Immunologic: Allergic/Immunologic: Reports no additional allergic/immunologic complaints and Denies wheezing PMFSH Past Medical History Medical History Overweight (BMI 25.0-29.9) and not yet delivered Surgical History Surgical History [place] teeth extracted Family History Family History Other No pertinent family history Social History Social History Smoking status: Never smoker Second hand tobacco smoke exposure: No Alcohol use details: SOCIAL - NONE SINCE AUGUST 2022 Substance use: never Substance use type: does not use Living arrangements: with family Gender identity (if verbalized by the patient): Female Spiritual care concerns: No Meds Home Medications and Allergies Home Medications Medication Instructions Recorded Confirmed Type No Home Medications 10/23/22 10/26/22 History Allergies Allergy/AdvReac Type Severity Reaction Status Date / Time No Known Allergies Allergy Verified 10/26/22 06:19 Vital Signs Vital Signs - 24 hr 10/26/22
[2022-10-26 08:16] VITALS: BP 92/46; PULSE 80; RESP 16; O2SAT 95
--- NOTE | 2022-10-26 08:20 | W.PM.PROC2 ---
Procedure Note - Detailed Date of Procedure 10/26/22 Pre-op Diagnosis Missed AB Post-op Diagnosis Same Procedure Performed Suction D&C Surgeon Susanne Benson MD Anesthesia MAC Indications missed Findings normal-appearing vulva vagina and cervix to. Moderate amount of products conception within the uterus. 8 cm uterus Description of Procedure the patient was taken the operating room. She was prepped and draped in dorsal lithotomy position after induction of mac anesthesia. A speculum was placed in the vagina. Cervix grasped with tenaculum. The cervix was dilated to about 1 cm Using Keys dilators. A 8. Lithuanian curved curette was used to perform suction D&C. The curette was introduced and vacuum was applied. The curette was removed over all surfaces of the intrauterine cavity multiple times. This was done until all the surfaces were clear and had the familiar grainy texture they can be felt through the instrument. A sharp curette was then used to curettage all the surfaces. The suction cup was then reapplied 1 more time to remove any debris. The instruments were removed. The speculum and tenaculum were removed. The patient tolerated the procedure well. She was taken recovery room stable condition. Estimated Blood Loss 50 Drains No Packing No Pathology Yes Complications No immediate complications Condition Stable Disposition PACU
[2022-10-26 08:40] VITALS: BP 99/59; PULSE 67; RESP 18; O2SAT 100
[2022-10-26 09:10] VITALS: BP 102/60; PULSE 61; RESP 16
== END 2022-10-26 09:22 | disposition home or self-care (01) ==
PROVIDERS: PCP Internal Medicine; Visit Provider Obstetrics & Gynecology
PROC: (CPT 59820; principal; 2022-10-26 07:30)
DX: O02.1 Missed abortion (principal)
CPT/HCPCS: 59820; 36415; 85461; 86850; 86900; 86901; 88305; A9270; J1885; J2250; J2405; J2704; J3010; J7120

== ENCOUNTER 2023-08-01 06:33 | Outpatient (CLI) | payer OTHER, SELFPAY ==
[2023-08-01 07:02] VITALS: BP 121/78; PULSE 97
--- NOTE | 2023-08-01 07:11 | P.HP_ITS ---
H&P: HPI History of Present Illness Date/Time: 08/01/23 07:11 at 36.5 weeks gestation Chief Complaint: pt is here for possible external version. fetus has been breech, but pt recently feels baby has moved. complicated by HSV, pt has a history of 34 week PPROM Review of Systems Review of Systems: All systems reviewed & are unremarkable except as noted in HPI and below PMFSH Past Medical History Medical History Overweight (BMI 25.0-29.9) and not yet delivered Surgical History Surgical History [place] teeth extracted Family History Family History Other No pertinent family history Social History Social History Smoking status: Never smoker Second hand tobacco smoke exposure: No Alcohol use details: SOCIAL - NONE SINCE AUGUST 2022 Substance use: never Substance use type: does not use Living arrangements: with family Gender identity (if verbalized by the patient): Female Spiritual care concerns: No Meds Home Medications and Allergies Home Medications Medication Instructions Recorded Confirmed Type No Home Medications 10/23/22 10/26/22 History Allergies Allergy/AdvReac Type Severity Reaction Status Date / Time No Known Allergies Allergy Verified 10/26/22 06:19 Vital Signs Vital Signs - 24 hr 08/01/23 07:02 Pulse Rate 97 Blood Pressure 121/78 Exam Const: General: cooperative, healthy appearing and comfortable Resp: Effort & Inspection: normal respiratory effort Cardio: Rate: regular rate GI: Other: gravid/ soft Bedside US shows fetus in vertex presentation Skin: General skin exam: normal color Neuro: General: patient oriented x3 Extrem: Right lower extremity: normal to inspection Left lower extremity: normal to inspection Assessment and Plan Assessment and plan (1) Breech presentation: Code(s): O32.1XX0 - Maternal care for breech presentation, not applicable or unspecified Status: Acute Plan at 36.5 weeks gestation Vertex presentation plan abdominal binder f/u in office
[2023-08-01 07:15] VITALS: BP 115/72; PULSE 89
[2023-08-01 07:24] VITALS: BP 121/78; PULSE 93
== END 2023-08-01 07:25 | disposition home or self-care (01) ==
LOC: ANHOBOP 06:38 → ANHOBPP 06:39
PROVIDERS: PCP Internal Medicine; Visit Provider Advanced Practice Midwife
DX: O32.1XX0 Maternal care for breech presentation, not applicable or unspecified (principal); Z3A.00 Weeks of gestation of pregnancy not specified
CPT/HCPCS: 59025; 99199

== ENCOUNTER 2023-08-20 00:01 | Inpatient (IN) | payer OTHER, SELFPAY ==
[2023-08-20] VITALS (134 sets, daily range): BP systolic 83–133; BP diastolic 35–116; PULSE 57–209; RESP 16–18; TEMP 36.6–37.2; O2SAT 93–100; BMI 34.0
--- NOTE | 2023-08-20 00:20 | LDADM ---
This patient, Shaista Dowling, was admitted to Labor/Delivery/Recovery 105 on 08/20/23 at 00:01. Plans for labor, pain management and were discussed with patient. Patient/family oriented to hospital policies and general routines including ID bracelet, bed and alarms, visiting hours, pain management, procedures, bathroom and other care routines, personal items, smoking policy, room service/diet and guest tray routines, security routines, and visiting hours. Patient/Family are encouraged to report perceived risks to care and to ask questions if they do not understand what they are told or what they should do. See OBIX for further documentation.
[2023-08-20 00:38] LABS: Basophils Percent Auto 0.2 % (0.2-1.2); Eosinophils Absolute Auto 0.1 K/mm3 (0-0.3); Eosinophils Percent Auto 0.7 % (0-4.4); Hematocrit 34.7 % (37.0-47.0); Hemoglobin 11.5 g/dL (12.0-15.0); Immature Granulocyte Absolute 0.02 K/mm3 (0.00-0.031); Immature Granulocyte Percent A 0.2 % (0-0.5); Lymphocytes Absolute Auto 2.27 K/mm3 (0.9-3.2); Lymphocytes Percent Auto 25.9 % (18.3-44.2); Mean Corpuscular HGB Conc 33.1 g/dl (32-36); Mean Corpuscular Hemoglobin 27.9 pg (26-34); Mean Corpuscular Volume 84.2 fl (80-100); Mean Platelet Volume 9.7 fl (7.4-10.4); Monocytes Absolute Auto 0.6 K/mm3 (0.1-0.6); Monocytes Percent Auto 6.8 % (2.6-8.5); Neutrophils Absolute Auto 5.8 K/mm3 (1.3-6.7); Neutrophils Percent Auto 66.2 % (45.5-73.1); Platelet Count Result 221 k/mm3 (150-375); Red Blood Count 4.12 M/mm3 (4.2-5.4); Red Cell Distribution Width 13.8 % (11.5-14.5); White Blood Count 8.8 K/mm3 (4.5-10.0)
[2023-08-20] MEDS: FAMOTIDINE 20 MG/2 ML VIAL IV PUSH (00:52)
[2023-08-20] MEDS: miSOPROStol 25 MCG TABLET 50 MCG PO (00:52)
[2023-08-20 02:14] LABS: HIV 1/2 Ab P24 Ag Result Negative (Negative)
[2023-08-20] MEDS: LACTATED RINGERS 1,000 ML 125 ML IV CONT ×2 (03:10→04:55)
--- NOTE | 2023-08-20 03:47 | WPDANESEPP ---
Anes - Eval Pre Procedure Procedure: Labor Epidural Date/Time: 08/20/23 03:47 Surgeon: Marcelino Preop Diagnosis: Labor Pain Pre Op Diagnosis: IOL Patient Data Age: 28 Gender: F Height: 1.68 m Weight: 95.5 kg Last Vital Signs Pulse 82 08/20/23 03:45 BP 111/78 08/20/23 03:45 O2 Del Method Room Air 08/20/23 00:18 Allergies Allergy/AdvReac Type Severity Reaction Status Date / Time No Known Allergies Allergy Verified 08/20/23 00:31 Home Medications Medication Instructions Recorded Confirmed Type vit no.95-ferrous 1 tablet PO DAILY 08/01/23 08/20/23 History fumarate 28 mg-folic acid 800 mcg tablet () valacyclovir 500 mg tablet 500 mg PO BID 08/01/23 08/20/23 History Laboratory Tests 08/20/23 00:16 WBC 8.8 K/mm3 (4.5-10.0) RBC 4.12 L M/mm3 (4.2-5.4) Hgb 11.5 L g/dL (12.0-15.0) Hct 34.7 L % (37.0-47.0) MCV 84.2 fl (80-100) MCH 27.9 pg (26-34) MCHC 33.1 g/dl (32-36) RDW 13.8 % (11.5-14.5) Plt Count 221 k/mm3 (150-375) MPV 9.7 fl (7.4-10.4) Immature Gran % (Auto) 0.2 % (0-0.5) Neut % (Auto) 66.2 % (45.5-73.1) Lymph % (Auto) 25.9 % (18.3-44.2) Arthur % (Auto) 6.8 % (2.6-8.5) Eos % (Auto) 0.7 % (0-4.4) Baso % (Auto) 0.2 % (0.2-1.2) Lymph # (Auto) 2.27 K/mm3 (0.9-3.2) Arthur # (Auto) 0.6 K/mm3 (0.1-0.6) Eos # (Auto) 0.1 K/mm3 (0-0.3) Baso # (Auto) 0.0 K/mm3 (0.0-0.1) Abs Immat Gran (auto) 0.02 K/mm3 (0.00-0.031) Absolute Neuts (auto) 5.8 K/mm3 (1.3-6.7) Absolute Nucleated RBC 0.000 K/mm3 (0.0-0.012) Nucleated RBC % 0.0 % (0.0-0.2) RPR Pending HIV 1&2 Ab/P24 Ag 4thGn Negative (Negative) Blood Type AB Positive Antibody Screen Negative Patient hx anesthesia problems: none Family hx anesthesia problems: none Results Review: All pre-operative results and documents have been reviewed as part of the pre-operative evaluation. [facility] Past Medical History Medical History Overweight (BMI 25.0-29.9) and not yet delivered Surgical History Surgical History [place] teeth extracted Family History Family History Father Hypertension Mother Hypertension Social History Social History Smoking status: Never smoker Second hand tobacco smoke exposure: No Alcohol use details: SOCIAL - NONE SINCE AUGUST 2022 Substance use: never Substance use type: does not use Do You Feel Safe in your Home?: Yes Lack of Transportation: No Lack of Food: Never True Current Housing: I Have Housing Concerned About Future Housing: No Difficulty Paying Gas/Electric Bills: No Difficulty Paying for Meds: No Currently Unemployed: No Education: Master's Degree or Higher Difficulty w/ Childcare or Family Care: No Living arrangements: with family Gender identity (if verbalized by the patient): Female Spiritual care concerns: No Exam Day of Procedure 08/20/23 03:47 Patient weight: normal Heart: regular rate and rhythm Lungs: normal air movement Airway: Mallampati scale class II Neurological: alert and oriented
--- NOTE | 2023-08-20 04:00 | WPDOBADMIT ---
Obstetrics - Admit Note Admission Note: record reviewed. No pertinent additions to the history and/or any subsequent changes in the physical findings that are not consistent with the expected course of the were found. Additions to the history and/or subsequent changes in the physical findings follow. None. Admit for elective IOL, anticipate vaginal delivery
[2023-08-20] MEDS: OXYTOCIN 30 UNITS/NS 500 ML 30 UNITS/500 ML BAG IV CONT (05:14)
[2023-08-20] MEDS: ONDANSETRON INJ 4 MG/2 ML VIAL IV PUSH (06:56)
--- NOTE | 2023-08-20 10:19 | P.PCNOB_ITS ---
OB - Vaginal Delivery Note Procedure Delivery date: 08/20/23 Induction method: AROM, Per Misoprostol Protocol and Per Pitocin Protocol Delivery monitor: External FHT and External Uterine Route of delivery: Laceration Description: Perineal - 2nd Degree Delivery repair: vicryl Specimen: Yes Quantitative Blood Loss (ml): 200 Anesthesia type: Epidural Disposition: Floor Complications: No immediate complications [place] Baby Date of : 08/20/23 Time of : 09:59 Weeks of gestation at delivery: 39 gender: Female Weight (pounds): 7 Weight (ounces): 6 presentation: vertex position: Left Occiput Anterior Placenta delivery description: Spontaneous Cord Vessel Description: 3 Vessels, Nuchal Cord (x1) and Around Body (x1) score one minute: 9 score five minutes: 9 Narrative: mother and baby in stable condition
[2023-08-20] MEDS: OXYTOCIN 30 UNITS/NS 500 ML 30 UNITS/500 ML BAG 125 UNITS IV CONT (10:32)
[2023-08-20 13:16] LABS: Rapid Plasma Reagin Non-Reactive (NonReactive)
--- NOTE | 2023-08-20 13:47 | OBPPTRN ---
1306 Patient transferred to post room #290 via W/C. Support person present. Oriented to unit, room, information board, rooming in, admission packet and security measures. Patient verbalizes understanding.
[2023-08-20] MEDS: IBUPROFEN 600 MG TABLET PO (14:49)
[2023-08-21] MEDS: ACETAMINOPHEN 325 MG TABLET 650 MG PO ×2 (01:20→08:39)
[2023-08-21] MEDS: IBUPROFEN 600 MG TABLET PO ×2 (01:21→08:38)
[2023-08-21 04:46] VITALS: BP 94/71; PULSE 92; RESP 18; TEMP 36.1; O2SAT 100
[2023-08-21 05:20] LABS: Hematocrit 34.1 % (37.0-47.0); Hemoglobin 10.8 g/dL (12.0-15.0)
--- NOTE | 2023-08-21 07:44 | PM.OBPNVD ---
OB - PN: Subj Subjective Date/time seen: 08/21/23 07:44 Patient comments: no complaints, pain well controlled, incisional pain, tolerating diet and flatus present OB - PN: Obj Data Labs 08/21/23 04:52 Labs: Laboratory Results - last 24 hr 08/20/23 08/21/23 00:16 04:52 Hgb 10.8 L Hct 34.1 L RPR Non-reactive OB - PN A/P Plan day: 1 Plan: routine care Comments: No problems, routine care Time Spent With Patient Time: Total time spent is greater than 50% in coordination of care (as documented) at patient's floor/unit and/or counseling patient: Exam Const: General: comfortable, no acute distress and alert Resp: Effort & Inspection: normal respiratory effort Auscultation: no crackles, no rales and no rhonchi Cardio: Rate: regular rate Heart sounds: no click, no murmurs and no rubs GI: Inspection: non-distended GI Palp: No Tenderness to palpation present (GI) Auscultation: normal bowel sounds Other: Incision - CDI Extrem: General: normal to inspection, no pedal edema and no calf tenderness
--- NOTE | 2023-08-21 07:45 | PM.OBDSVD ---
DS: Admitting Diagnosis Discharge Date 08/21/2023 Admitting Diagnosis term DS: Discharge Diagnosis Discharge Diagnosis (1) Post term , delivered: Code(s): O48.0 - Post-term Status: Acute OB - DS: Summary OB Procedures : None OB Procedures Intrapartum: Spontaneous Vag Delivery OB Procedures: : None Peripartum Data Laceration Description: Perineal - 2nd Degree Time Spent with Patient Time attestation: Total time spent providing and/or coordinating discharge services: DS: Data Data Completed and Pending Pending studies at discharge: Pending at discharge 08/20/23 12:46 Surgical [PTH] Routine Labs on day of discharge: Labs from last 24 hours 08/21/23 08/20/23 04:52 00:16 Hgb 10.8 L Hct 34.1 L RPR Non-reactive Discharge Plan Discharge Discharging Clinician: Babar Benson Patient Disposition: Home, Self-Care Activity: pelvic rest Diet: regular Patient Instructions: Antibiotic Form Stand Alone Forms: General Discharge Information Follow-up/Referrals: Babar Benson MD [Physician] - Discharge Medications: Continued valacyclovir 500 mg tablet 500 mg PO BID PNV [id number] [] 28 mg iron- 800 mcg Tablet 1 tablet PO DAILY Date of admission: 08/20/23 00:01 Primary Care Provider: Farhan,Kimberlyn Skinner Admitting Provider: Babar Benson Attending physician on admission: Babar Benson Condition: Stable
[2023-08-21 08:00] VITALS: BP 105/73; PULSE 99; RESP 16; TEMP 36.3; O2SAT 100
[2023-08-21] MEDS: DOCUSATE SODIUM 100 MG CAPSULE PO (08:40)
--- NOTE | 2023-08-21 10:58 | WPDANLDPN2 ---
Anes-Prog Note L&D Date/Time: 08/21/23 10:58 Neuro status: Neuro function grossly intact. Cardiovascular status: normal Respiratory status: normal Airway patency: baseline Mental status: baseline Post-Op hydration status: normal Vital Signs: Last Vital Signs Temp 36.3 C L 08/21/23 08:00 Pulse 99 08/21/23 08:00 Resp 16 08/21/23 08:00 BP 105/73 08/21/23 08:00 Pulse Ox 100 08/21/23 08:00 O2 Del Method Room Air 08/20/23 13:06 Pain score (VAS): 0 I/O: Intake & Output 08/20/23 08/21/23 08/21/23 23:59 07:59 15:59 Intake Total 0 Balance 0 Post-procedural complaints: none Patient feedback: Patient satisfied with anesthetic care.
[2023-08-22 10:11] VITALS: BP 117/68; PULSE 77; RESP 18; TEMP 36.9; O2SAT 100
== END 2023-08-21 15:00 | disposition home or self-care (01) | DRG 807 ==
LOC: ANHLDR 00:03 → ANHOB2 13:12
PROVIDERS: Advanced Practice Midwife; Admitting Provider Obstetrics & Gynecology; PCP Pediatrics; Visit Provider Obstetrics & Gynecology
DX: O77.0 Labor and delivery complicated by meconium in amniotic fluid (principal); Z37.0 Single live birth; Z3A.39 39 weeks gestation of pregnancy; O70.1 Second degree perineal laceration during delivery; O69.82X0 Labor and delivery complicated by other cord entanglement, without compression, not applicable or unspecified
CPT/HCPCS: 36415; 85014; 85018; 85025; 86592; 86703; 86850; 86900; 86901; 88307; A9270; G0432; J2405; J2590; J2795; J7120